=== PATIENT | male | born 1935 | race Caucasian/White ===

== ENCOUNTER 2019-03-04 22:11 | Inpatient (IN) | payer SELFPAY ==
[~2019-03-04] VITALS: Ht 180.3 cm; Wt 74.4 kg
[2019-03-04] MEDS ORDERED: FUROSEMIDE 40 MG/4 ML IVPush ONE (22:30)
[2019-03-04] MEDS ORDERED: SODIUM CHLORIDE FLUSH 10ML SYR IVF ONE (22:30)
[2019-03-04] MEDS ORDERED: LISI-167 PO (22:31)
[2019-03-04] MEDS ORDERED: ISOS20TA3 PO (22:31)
[2019-03-04] MEDS ORDERED: APIX5TAB PO (22:31)
[2019-03-04] MEDS ORDERED: SIMV20TA3 PO (22:31)
[2019-03-04] MEDS ORDERED: FUROSEMIDE 20 MG/2 ML ONE (22:34)
[2019-03-04 22:39] LABS: BASOPHILS # (AUTO) 0.03 x10^3/uL (0-0.1); BASOPHILS % (AUTO) 0 % (0-1); EOSINOPHILS # (AUTO) 0.44 x10^3/uL (0-0.4); EOSINOPHILS % (AUTO) 4 % (1-7); LYMPHOCYTES # (AUTO) 1.58 x10^3/uL (1-3.4); LYMPHOCYTES % (AUTO) 14 % (22-44); MD NO; MEAN CORPUSCULAR HGB CONC 32.5 g/dL (33.2-36.2); MEAN CORPUSCULAR VOLUME 95.3 fL (81-97); MEAN PLATELET VOLUME 9.6 fL (7.4-10.4); MONOCYTES # (AUTO) 0.74 x10^3/uL (0.2-0.8); MONOCYTES % (AUTO) 6 % (2-9); NEUTROPHILS # (AUTO) 8.74 x10^3/uL (1.8-6.8); NEUTROPHILS % (AUTO) 76 % (42-75); PLATELET COUNT 132 x10^3/uL (130-400); RED BLOOD COUNT 4.57 x10^6/uL (4.38-5.82); RED CELL DISTRIBUTION WIDTH 15.2 % (9.4-14.8)
[2019-03-04 22:45] LABS: INTERNATIONAL NORMALIZED RATIO 1.14 (0.93-1.1); PROTHROMBIN TIME 11.9 Seconds (9.6-11.5)
[2019-03-04 22:47] LABS: ALANINE AMINOTRANSFERASE 26 U/L (12-78); ALBUMIN 3.4 g/dL (3.4-5.0); ANION GAP 8 mmol/L (5-15); CALCIUM 8.9 mg/dL (8.5-10.1); CHLORIDE 109 mmol/L (98-107)
[2019-03-04 22:51] LABS: ALKALINE PHOSPHATASE 86 U/L (45-117); BILIRUBIN,TOTAL 0.7 mg/dL (0.2-1.0)
[2019-03-04] MEDS ORDERED: PLEASE ENTER ALLERGIES MC SCH (23:00)
[2019-03-05 00:30] VITALS: BP 111/73
[2019-03-05] MEDS ORDERED: ONDANSETRON 2MG/ML, 2ML IVPush PRN (01:00)
[2019-03-05] MEDS ORDERED: ACETAMINOPHEN 325 MG TABLET PO PRN (01:00)
[2019-03-05] MEDS ORDERED: DOCUSATE 100 MG CAPSULE PO PRN (01:00)
[2019-03-05] MEDS: SIMVASTATIN 20 MG TABLET PO SCH ×2 (02:00→20:13)
[2019-03-05] MEDS ORDERED: FUROSEMIDE 20 MG/2 ML IV SCH (07:30)
[2019-03-05 09:40] VITALS: BP 111/62
[2019-03-05] MEDS: LISINOPRIL 10 MG TABLET PO SCH (09:52)
[2019-03-05] MEDS: APIXABAN 5 MG TABLET PO SCH ×2 (09:52→20:13)
[2019-03-05] MEDS: ISOSORBIDE MONONITRATE 20 MG TABLET PO SCH (09:52)
[2019-03-05 11:28] LABS: BASOPHILS # (AUTO) 0.02 x10^3/uL (0-0.1); BASOPHILS % (AUTO) 0 % (0-1); EOSINOPHILS # (AUTO) 0.44 x10^3/uL (0-0.4); EOSINOPHILS % (AUTO) 5 % (1-7); LYMPHOCYTES # (AUTO) 1.49 x10^3/uL (1-3.4); LYMPHOCYTES % (AUTO) 16 % (22-44); MD NO; MEAN CORPUSCULAR HEMOGLOBIN 31.1 pg (27.5-34.5); MEAN CORPUSCULAR HGB CONC 32.6 g/dL (33.2-36.2); MEAN CORPUSCULAR VOLUME 95.3 fL (81-97); MEAN PLATELET VOLUME 10.3 fL (7.4-10.4); MONOCYTES # (AUTO) 0.45 x10^3/uL (0.2-0.8); MONOCYTES % (AUTO) 5 % (2-9); NEUTROPHILS # (AUTO) 7.25 x10^3/uL (1.8-6.8); NEUTROPHILS % (AUTO) 75 % (42-75); PLATELET COUNT 128 x10^3/uL (130-400); RED BLOOD COUNT 4.37 x10^6/uL (4.38-5.82); RED CELL DISTRIBUTION WIDTH 15.1 % (9.4-14.8)
[2019-03-05 11:50] LABS: ANION GAP 6 mmol/L (5-15); CALCIUM 8.5 mg/dL (8.5-10.1); CHLORIDE 106 mmol/L (98-107); CREATININE 1.02 mg/dL (0.7-1.3)
[2019-03-05 14:34] VITALS: BP 93/53
[2019-03-05 15:19] LABS: RAPID INFLUENZA A Negative (Negative); RAPID INFLUENZA B Negative (Negative)
[2019-03-05] MEDS: AZITHROMYCIN 500 MG TABLET PO SCH (17:41)
[2019-03-05 20:00] VITALS: BP 116/50
[2019-03-05] MEDS: CEFTRIAXONE PMX 2GM/50ML 50 ML IV SCH (20:12)
[2019-03-05] MEDS: FUROSEMIDE 40 MG/4 ML IV SCH (20:14)
[2019-03-06] VITALS (19 sets, daily range): BP systolic 57–146; BP diastolic 38–77
[2019-03-06] MEDS ORDERED: SODIUM CHLORIDE 0.9%, 250ML IVBOLUS ONE ×2 (01:00→04:00)
[2019-03-06 04:26] LABS: BASOPHILS # (AUTO) 0.01 x10^3/uL (0-0.1); BASOPHILS % (AUTO) 0 % (0-1); EOSINOPHILS # (AUTO) 0.67 x10^3/uL (0-0.4); EOSINOPHILS % (AUTO) 7 % (1-7); LYMPHOCYTES # (AUTO) 1.52 x10^3/uL (1-3.4); LYMPHOCYTES % (AUTO) 15 % (22-44); MD NO; MEAN CORPUSCULAR HGB CONC 32.6 g/dL (33.2-36.2); MEAN CORPUSCULAR VOLUME 95.2 fL (81-97); MEAN PLATELET VOLUME 9.1 fL (7.4-10.4); MONOCYTES # (AUTO) 0.79 x10^3/uL (0.2-0.8); MONOCYTES % (AUTO) 8 % (2-9); NEUTROPHILS # (AUTO) 7.07 x10^3/uL (1.8-6.8); NEUTROPHILS % (AUTO) 70 % (42-75); PLATELET COUNT 133 x10^3/uL (130-400); RED CELL DISTRIBUTION WIDTH 15.5 % (9.4-14.8)
[2019-03-06 04:38] LABS: ALBUMIN 3.2 g/dL (3.4-5.0); ANION GAP 6 mmol/L (5-15); CHLORIDE 105 mmol/L (98-107); CREATININE 1.07 mg/dL (0.7-1.3)
[2019-03-06] MEDS ORDERED: HALOPERIDOL 5 MG/ML ONE (04:39)
[2019-03-06] MEDS ORDERED: HALOPERIDOL 5 MG/ML IM PRN (05:00)
[2019-03-06 06:49] LABS: FREE T4 (FREE THYROXINE) 1.26 ng/dL (0.76-1.46)
[2019-03-06] MEDS: APIXABAN 5 MG TABLET PO SCH ×2 (08:24→20:45)
[2019-03-06] MEDS: ISOSORBIDE MONONITRATE 20 MG TABLET PO SCH (08:24)
[2019-03-06] MEDS: FUROSEMIDE 40 MG/4 ML IV SCH ×2 (08:26→16:11)
[2019-03-06] MEDS: LISINOPRIL 10 MG TABLET PO SCH (08:26)
[2019-03-06] MEDS: AZITHROMYCIN 500 MG TABLET PO SCH (08:27)
[2019-03-06] MEDS: CARVEDILOL 6.25 MG TABLET PO SCH ×2 (11:30→18:14)
[2019-03-06 11:34] LABS: TROPONIN I 0.765 ng/mL (0.000-0.045)
[2019-03-06 11:46] LABS: CHOL/HDL RATIO 2.9; LDL/HDL RATIO 1.5 (0.5-3.0)
[2019-03-06] MEDS ORDERED: ALBUTEROL SULFATE 2.5 MG/3 ML NPPB PRN (15:00)
[2019-03-06] MEDS: SIMVASTATIN 20 MG TABLET PO SCH (20:45)
[2019-03-06] MEDS: CEFTRIAXONE PMX 2GM/50ML 50 ML IV SCH (20:45)
[2019-03-07 00:45] VITALS: BP 109/55
[2019-03-07] MEDS: CARVEDILOL 6.25 MG TABLET PO SCH (05:58)
[2019-03-07 07:35] VITALS: BP 116/68
[2019-03-07] MEDS: ISOSORBIDE MONONITRATE 20 MG TABLET PO SCH (09:01)
[2019-03-07] MEDS: FUROSEMIDE 40 MG/4 ML IV SCH (09:01)
[2019-03-07] MEDS: APIXABAN 5 MG TABLET PO SCH (09:01)
[2019-03-07] MEDS: LISINOPRIL 10 MG TABLET PO SCH (09:01)
[2019-03-07] MEDS: AZITHROMYCIN 500 MG TABLET PO SCH (09:01)
[2019-03-07 09:06] LABS: BASOPHILS # (AUTO) 0.06 x10^3/uL (0-0.1); BASOPHILS % (AUTO) 1 % (0-1); EOSINOPHILS # (AUTO) 0.68 x10^3/uL (0-0.4); EOSINOPHILS % (AUTO) 6 % (1-7); LYMPHOCYTES # (AUTO) 0.98 x10^3/uL (1-3.4); LYMPHOCYTES % (AUTO) 8 % (22-44); MD NO; MEAN CORPUSCULAR HEMOGLOBIN 30.8 pg (27.5-34.5); MEAN CORPUSCULAR HGB CONC 32.9 g/dL (33.2-36.2); MEAN CORPUSCULAR VOLUME 93.6 fL (81-97); MEAN PLATELET VOLUME 8.9 fL (7.4-10.4); MONOCYTES # (AUTO) 0.71 x10^3/uL (0.2-0.8); MONOCYTES % (AUTO) 6 % (2-9); NEUTROPHILS # (AUTO) 9.42 x10^3/uL (1.8-6.8); NEUTROPHILS % (AUTO) 80 % (42-75); PLATELET COUNT 140 x10^3/uL (130-400); RED BLOOD COUNT 5.03 x10^6/uL (4.38-5.82); RED CELL DISTRIBUTION WIDTH 15.3 % (9.4-14.8)
[2019-03-07 09:12] LABS: ANION GAP 5 mmol/L (5-15); CALCIUM 8.9 mg/dL (8.5-10.1); CHLORIDE 103 mmol/L (98-107)
== END 2019-03-07 13:19 | disposition left against medical advice (07) | DRG 280 ==
LOC: ED 23:30 → EDIP 23:34 → ED 23:46 → 5SO 03-05 00:54
PROVIDERS: ADMIT Internal Medicine; ATTEND Hospitalist
DX: I21.9 Acute myocardial infarction, unspecified (principal); I50.21 Acute systolic (congestive) heart failure; J18.9 Pneumonia, unspecified organism; D68.59 Other primary thrombophilia; E78.5 Hyperlipidemia, unspecified; I07.1 Rheumatic tricuspid insufficiency; I11.0 Hypertensive heart disease with heart failure; I25.2 Old myocardial infarction; I25.10 Atherosclerotic heart disease of native coronary artery without angina pectoris; J06.9 Acute upper respiratory infection, unspecified; I48.91 Unspecified atrial fibrillation; Z82.49 Family history of ischemic heart disease and other diseases of the circulatory system; Z87.891 Personal history of nicotine dependence; Z87.442 Personal history of urinary calculi; Z53.29 Procedure and treatment not carried out because of patient's decision for other reasons
CPT/HCPCS: 36415; 71046; 80048; 80053; 80061; 82040; 83605; 83880; 84145; 84439; 84443; 84484; 85025; 85610; 85730; 87400; 93005; 93306; 93970; 94640; 99285; G0378; J0696; J1940; J7050